=== PATIENT | female | born 1990 | race Caucasian/White ===

== ENCOUNTER 2022-05-24 11:05 | Day surgery (SDC) | payer OTHER ==
[~2022-05-24] VITALS: Ht 152.4 cm; Wt 145.1 kg
[2022-05-24] MEDS ORDERED: MIDAZOLAM 5 MG/5 ML VIAL ONE (11:56)
[2022-05-24] MEDS ORDERED: fentaNYL citrate 0.05 MG/ML VIAL ONE (12:01)
[2022-05-24] MEDS ORDERED: MIDAZOLAM 2 MG/2 ML VIAL IVP ONE (12:25)
== END 2022-05-24 15:00 | disposition home or self-care (01) ==
LOC: MOR 11:05 → MMU 11:07 → MOR 15:00
PROVIDERS: ATTEND Internal Medicine Gastroenterology
DX: R10.13 Epigastric pain (principal); E66.9 Obesity, unspecified; Z68.44 Body mass index [BMI] 60.0-69.9, adult; Z80.0 Family history of malignant neoplasm of digestive organs; Z88.6 Allergy status to analgesic agent; Z20.822 Contact with and (suspected) exposure to COVID-19
CPT/HCPCS: 36415; 43239; 86677; 87426; J2250; J3010